=== PATIENT | female | born 1970 | race Asian ===

== ENCOUNTER 2023-11-05 09:07 | Outpatient (CLI) | payer OTHER | END 2023-11-05 09:08 | disposition home or self-care (01) | LOC: CSHMAMMO 09:07 | PROVIDERS: ATTEND Nurse Practitioner Family | DX: Z12.31 Encounter for screening mammogram for malignant neoplasm of breast (principal); N64.89 Other specified disorders of breast | CPT/HCPCS: 77063; 77067 ==